=== PATIENT | female | born 1970 | race Caucasian/White ===

== ENCOUNTER 2023-01-21 08:52 | Day surgery (SDC) | payer MEDICARE, MEDICAID ==
[2023-01-20 12:49] LABS: BASOPHILS % (AUTO) 0.4 % (0-1); EOSINOPHILS # (AUTO) 0.2 X10'3 (0-0.9); EOSINOPHILS % (AUTO) 2.2 % (0-6); HEMATOCRIT 39.7 % (35.0-45.0); HEMOGLOBIN 12.7 g/dl (12.0-16.0); LYMPHOCYTES # (AUTO) 2.6 X10'3 (1.1-4.8); LYMPHOCYTES % (AUTO) 31.3 % (21-51); MEAN CORPUSCULAR VOLUME 87.5 FL (78-98); MEAN PLATELET VOLUME 7.2 FL (7.4-10.4); MONOCYTES # (AUTO) 0.5 X10'3 (0-0.9); NEUTROPHILS # (AUTO) 4.9 X10'3 (1.8-7.7); NEUTROPHILS % (AUTO) 60.1 % (42-75); PLATELET COUNT 386 X10'3 (140-440); RED BLOOD COUNT 4.54 X10'6 (4.20-5.60); RED CELL DISTRIBUTION WIDTH 15.9 % (11.5-14.5); WHITE BLOOD COUNT 8.2 X10'3 (4.5-11.0)
[2023-01-20 12:56] LABS: ALBUMIN 3.5 G/DL (3.4-5.0); ANION GAP 10 (8-16); BLOOD UREA NITROGEN 20 MG/DL (7-18); CALCIUM 9.5 MG/DL (8.5-10.1); CHLORIDE 99 MMOL/L (99-107); GLUCOSE 129 MG/DL (70-104); POTASSIUM 4.1 MMOL/L (3.5-5.1); SODIUM 137 MMOL/L (135-145); TOTAL CARBON DIOXIDE 28.2 MMOL/L (24-32); eGFR 75 ML/MIN
[2023-01-20 12:58] LABS: APTT 33 SECONDS (22-32); PROTHROMBIN TIME 10.4 SECONDS (9.0-12.0)
[2023-01-21] VITALS (10 sets, daily range): BP systolic 100–130; BP diastolic 57–72; PULSE 64–80; RESP 14–17; TEMP 98.1; O2SAT 95–100
[~2023-01-21] VITALS: Ht 167.6 cm; Wt 127.6 kg
[2023-01-21] MEDS ORDERED: LISI5TAB22 PO (09:19)
[2023-01-21] MEDS ORDERED: IXEK80AU2 SUBCUT (09:19)
[2023-01-21] MEDS ORDERED: LAMO200T10 PO (09:19)
[2023-01-21] MEDS ORDERED: EMPA10TA PO (09:19)
[2023-01-21] MEDS ORDERED: MONT-40 PO (09:19)
[2023-01-21] MEDS ORDERED: INSU100I71 SUBCUT (09:19)
[2023-01-21] MEDS ORDERED: SIMV-42 PO (09:19)
[2023-01-21] MEDS ORDERED: DULA1.5P SQ (09:19)
[2023-01-21] MEDS ORDERED: BUSP5TAB3 PO (09:19)
[2023-01-21] MEDS ORDERED: CITA40TA30 PO (09:21)
[2023-01-21] MEDS ORDERED: METF-438 PO (09:21)
[2023-01-21] MEDS ORDERED: ASPI-611 PO (09:21)
[2023-01-21] MEDS ORDERED: CHOL500050 PO (09:21)
[2023-01-21] MEDS ORDERED: normal saline 1,000 ML IV SCH (09:35)
[2023-01-21] MEDS ORDERED: diphenhydrAMINE 25mg capsule PO PRN (09:35)
[2023-01-21] MEDS ORDERED: LORazepam 0.5 MG tablet PO PRN (09:35)
[2023-01-21] MEDS ORDERED: LIDOcaine 1% (10mg/ml) 2ml vial ONE (09:45)
[2023-01-21] MEDS ORDERED: nitroGLYCERIN-Tridil 50MG/D5W 250 ML IV ONE (09:45)
[2023-01-21] MEDS ORDERED: verapamil 2.5 mg/ml inj IV ONE (09:45)
[2023-01-21] MEDS ORDERED: midazolam 1 mg/ML 2ml injection ONE (09:45)
[2023-01-21] MEDS ORDERED: iohexol 350MG/ML 100ml bottle IV ONE (09:46)
[2023-01-21] MEDS ORDERED: heparin 1,000unit/ml 10ml vial 10 ML ONE (09:46)
[2023-01-21] MEDS ORDERED: fentaNYL/PF 50MCG/1 ML 2ML syringe ONE (09:46)
[2023-01-21] MEDS ORDERED: iohexol 350 MG/ML 50ML vial IV ONE (10:16)
[2023-01-21] MEDS ORDERED: LIDOcaine 1% 30ml preserv. free vial ONE (10:30)
[2023-01-21 11:10] LABS: ISTAT HGB MIX 11.9 g/dl (12.0-16.0); ISTAT HGB MIX 12.2 g/dl (12.0-16.0); ISTAT Hct MIX 35 %PCV (35-45); ISTAT Hct MIX 36 %PCV (35-45); ISTAT O2 SATURATION MIX VENOUS 66 % (60-80); ISTAT O2 SATURATION MIX VENOUS 93 % (60-80); ISTAT SOURCE BLNK
[2023-01-21] MEDS ORDERED: sodium bicarbonate 1meq/ml syr 150 ML in dextrose 5%-water 1,000 ML IV SCH (11:40)
== END 2023-01-21 15:00 | disposition home or self-care (01) ==
LOC: SSTAY O 08:52
PROVIDERS: ATTEND Internal Medicine Cardiovascular Disease
DX: R94.39 Abnormal result of other cardiovascular function study (principal); I25.10 Atherosclerotic heart disease of native coronary artery without angina pectoris; E11.9 Type 2 diabetes mellitus without complications; I10 Essential (primary) hypertension; E78.5 Hyperlipidemia, unspecified; E66.9 Obesity, unspecified; Z68.41 Body mass index [BMI] 40.0-44.9, adult; G47.30 Sleep apnea, unspecified; F43.10 Post-traumatic stress disorder, unspecified; Z79.82 Long term (current) use of aspirin; Z79.899 Other long term (current) drug therapy; Z79.01 Long term (current) use of anticoagulants; Z79.4 Long term (current) use of insulin; Z98.890 Other specified postprocedural states; Z90.49 Acquired absence of other specified parts of digestive tract; Z90.710 Acquired absence of both cervix and uterus; Z87.891 Personal history of nicotine dependence; Z82.49 Family history of ischemic heart disease and other diseases of the circulatory system; Z83.3 Family history of diabetes mellitus
CPT/HCPCS: 36415; 76937; 80048; 82803; 82948; 85014; 85025; 85610; 85730; 93005; 93460; 99152; 99153; J1644; J2250; J3010; J3490; J7030; Q0163; Q9967; A6258; A6449; C1725; C1751; C1769; C1894

== ENCOUNTER 2023-01-28 02:25 | Emergency (ER) | payer MEDICARE, MEDICAID ==
[~2023-01-28] VITALS: Ht 167.6 cm; Wt 122.8 kg
[~2023-01-28 02:25] MED LIST: ASPI-611 PO; BUSP5TAB3 PO; CHOL500050 PO; CITA40TA30 PO; DULA1.5P SQ; EMPA10TA PO; INSU100I71 SUBCUT; IXEK80AU2 SUBCUT; LAMO200T10 PO; LISI5TAB22 PO; METF-438 PO; MONT-40 PO; SIMV-42 PO
[2023-01-28 02:28] VITALS: BP 148/67; PULSE 85; RESP 16; TEMP 98.1; O2SAT 97
[2023-01-28 05:09] LABS: BASOPHILS # (AUTO) 0.1 X10'3 (0-0.2); BASOPHILS % (AUTO) 0.9 % (0-1); EOSINOPHILS # (AUTO) 0.3 X10'3 (0-0.9); EOSINOPHILS % (AUTO) 2.9 % (0-6); HEMATOCRIT 36.2 % (35.0-45.0); HEMOGLOBIN 11.8 g/dl (12.0-16.0); LYMPHOCYTES # (AUTO) 3.5 X10'3 (1.1-4.8); LYMPHOCYTES % (AUTO) 39.3 % (21-51); MEAN CORPUSCULAR HEMOGLOBIN 28.4 PG (27.0-31.0); MEAN CORPUSCULAR HGB CONC 32.7 g/dL (33.0-36.5); MEAN CORPUSCULAR VOLUME 86.9 FL (78-98); MEAN PLATELET VOLUME 6.8 FL (7.4-10.4); MONOCYTES # (AUTO) 0.6 X10'3 (0-0.9); MONOCYTES % (AUTO) 6.3 % (2-12); NEUTROPHILS # (AUTO) 4.5 X10'3 (1.8-7.7); NEUTROPHILS % (AUTO) 50.6 % (42-75); PLATELET COUNT 401 X10'3 (140-440); RED BLOOD COUNT 4.16 X10'6 (4.20-5.60); RED CELL DISTRIBUTION WIDTH 15.7 % (11.5-14.5)
[2023-01-28 05:22] LABS: APTT 29 SECONDS (22-32); PROTHROMBIN TIME 10.3 SECONDS (9.0-12.0)
[2023-01-28 05:23] LABS: ALANINE AMINOTRANSFERASE 11 U/L (12-78); ALBUMIN 3.4 G/DL (3.4-5.0); ALBUMIN/GLOBULIN RATIO 0.7 (1.1-1.5); ALKALINE PHOSPHATASE 103 IU/L (46-116); ANION GAP 7 (8-16); ASPARTATE AMINO TRANSFERASE 11 U/L (10-37); BILIRUBIN,TOTAL 0.3 MG/DL (0.1-1.0); BLOOD UREA NITROGEN 21 MG/DL (7-18); BUN/CREATININE RATIO 25.9 (10.0-20.0); CALCIUM 9.4 MG/DL (8.5-10.1); CHLORIDE 99 MMOL/L (99-107); CREATININE 0.81 MG/DL (0.40-0.90); GLUCOSE 135 MG/DL (70-104); POTASSIUM 3.9 MMOL/L (3.5-5.1); SODIUM 136 MMOL/L (135-145); TOTAL PROTEIN 8.2 G/DL (6.4-8.2); eCRCL 75 ML/MIN; eGFR 74 ML/MIN
[2023-01-28] MEDS ORDERED: DOCU-171 PO (05:33)
[2023-01-28] MEDS ORDERED: bisacodyl 5mg tablet.DR PO ONE (05:35)
== END 2023-01-28 05:57 | disposition home or self-care (01) ==
LOC: ER 02:25
DX: K62.5 Hemorrhage of anus and rectum (principal); E78.00 Pure hypercholesterolemia, unspecified; E11.9 Type 2 diabetes mellitus without complications; Z98.890 Other specified postprocedural states; Z79.899 Other long term (current) drug therapy; Z79.1 Long term (current) use of non-steroidal anti-inflammatories (NSAID)
CPT/HCPCS: 36415; 80053; 85025; 85610; 85730; 86885; 86900; 86901; 99283

== ENCOUNTER 2024-01-05 21:52 | Emergency (ER) | payer MEDICARE, MEDICAID ==
[~2024-01-05] VITALS: Ht 167.6 cm; Wt 128.2 kg
[~2024-01-05 21:52] MED LIST changes: +DOCU-171 PO; -INSU100I71 SUBCUT; +INSU100I98 SUBCUT
[2024-01-05 22:07] VITALS: BP 127/79; PULSE 80; RESP 16; TEMP 97.8; O2SAT 98
[2024-01-05] MEDS ORDERED: NYST30CR34 TOP (22:21)
[2024-01-05] MEDS ORDERED: NYSPWD TP (22:21)
== END 2024-01-05 22:44 | disposition home or self-care (01) ==
LOC: ER 21:53
DX: B37.2 Candidiasis of skin and nail (principal); E78.00 Pure hypercholesterolemia, unspecified; E11.9 Type 2 diabetes mellitus without complications; Z79.82 Long term (current) use of aspirin; Z79.899 Other long term (current) drug therapy; Z79.4 Long term (current) use of insulin; Z79.84 Long term (current) use of oral hypoglycemic drugs; Z90.49 Acquired absence of other specified parts of digestive tract; Z98.890 Other specified postprocedural states; Z90.710 Acquired absence of both cervix and uterus
CPT/HCPCS: 99283

== ENCOUNTER 2024-03-23 17:50 | Emergency (ER) | payer MEDICARE, MEDICAID ==
[~2024-03-23] VITALS: Ht 167.6 cm; Wt 127.6 kg
[~2024-03-23 17:50] MED LIST changes: +NYSPWD TP; +NYST30CR34 TOP
[2024-03-23 18:04] VITALS: BP 183/77; PULSE 99; RESP 18; O2SAT 97
[2024-03-23] MEDS ORDERED: SULF1TAB49 PO (19:34)
[2024-03-23 20:00] VITALS: TEMP 97.9
[2024-03-23] MEDS: LIDOcaine 1% W/epiNEPHrine 1:100,000 20ml vial SQ ONE (20:06)
== END 2024-03-23 20:00 | disposition home or self-care (01) ==
LOC: ER 17:51
DX: L02.31 Cutaneous abscess of buttock (principal); E78.00 Pure hypercholesterolemia, unspecified; E11.9 Type 2 diabetes mellitus without complications; Z79.899 Other long term (current) drug therapy; Z79.82 Long term (current) use of aspirin; Z90.49 Acquired absence of other specified parts of digestive tract; Z90.710 Acquired absence of both cervix and uterus
CPT/HCPCS: 10060; 99283; A6213; A6258; A6407; Z7610

== ENCOUNTER 2024-05-16 08:04 | Emergency (ER) | payer MEDICARE, MEDICAID ==
[~2024-05-16] VITALS: Ht 167.6 cm; Wt 127.6 kg
[2024-05-16] MEDS ORDERED: POLOS RIGHTEYE (10:32)
[2024-05-16] MEDS ORDERED: CEPH-585 PO (10:32)
[2024-05-16 10:42] VITALS: BP 120/70; PULSE 80; RESP 16; TEMP 98.5; O2SAT 97
== END 2024-05-16 10:54 | disposition home or self-care (01) ==
LOC: ER 08:05
DX: H10.89 Other conjunctivitis (principal); E78.00 Pure hypercholesterolemia, unspecified; E11.9 Type 2 diabetes mellitus without complications; Z90.49 Acquired absence of other specified parts of digestive tract; Z90.710 Acquired absence of both cervix and uterus; Z98.890 Other specified postprocedural states; Z88.6 Allergy status to analgesic agent; Z79.4 Long term (current) use of insulin; Z79.82 Long term (current) use of aspirin
CPT/HCPCS: 99283

== ENCOUNTER 2024-11-11 02:29 | Emergency (ER) | payer MEDICARE, MEDICAID ==
[~2024-11-11] VITALS: Ht 167.6 cm; Wt 127.3 kg
[~2024-11-11 02:29] MED LIST changes: +NYST30CR28 TOP; -NYST30CR34 TOP
[2024-11-11 02:31] VITALS: BP 149/72; PULSE 83; RESP 18; O2SAT 98
[2024-11-11] MEDS: LIDOcaine 1% W/epiNEPHrine 1:100,000 20ml vial SQ ONE (03:09)
--- NOTE | 2024-11-11 03:35 | Physician Documentation ---
History of Present Illness ~ Chief Complaint: Abscess Stated Complaint: ABSCESS Time Seen by MD: 03:34 Primary Medical Doctor: none- pt is in between doctors HPI Patient presents to the emergency room with one-week history of abscess formation to her left buttock. She states it is now red swollen warm and painful. She denies purulent discharge from the area as of yet. She denies fevers or chills. She has had these in the past which required incision and drainage. Tetanus Within 5 Years: Yes Medication Reconciliation Allergies: Coded Allergies: No Known Allergies (Unverified , 11/11/24) Scheduled Aspirin (Aspir 81), 1 TAB PO DAILY, (Reported) Buspirone Hcl* (Buspar*), 1 TAB PO BID, (Reported) Cholecalciferol (Vitamin D3) (Vitamin D3), 1 CAP PO DAILY, (Reported) Citalopram Hydrobromide (Citalopram HBr), 1 TAB PO DAILY, (Reported) Docusate Sodium (Dulcolax Stool Softener), 1 CAP PO Q12H Dulaglutide (Trulicity), 1 EA SQ Q7D, (Reported) Empagliflozin (Jardiance), 1 TAB PO DAILY, (Reported) Insulin Glargine-Yfgn (Semglee (Yfgn) Pen), 40 UNITS SUBCUT DAILY, (Reported) Ixekizumab (Taltz Autoinjector), 1 EA SUBCUT Q28D, (Reported) Lamotrigine (Lamotrigine), 2 TAB PO DAILY, (Reported) Lisinopril (Lisinopril), 1 TAB PO DAILY, (Reported) Metformin HCl (Metformin HCl), 1 TAB PO BID, (Reported) Montelukast Sodium (Montelukast Sodium), 1 TAB PO DAILY, (Reported) Nystatin (Nystatin), 1 APPLIC TOP Q12H Nystatin (NYSTOP powder), 1 APPLIC TP BID Simvastatin* (Zocor*), 1 TAB PO HS, (Reported) Sulfamethoxazole/Trimethoprim (Bactrim Ds Tablet), 1 TAB PO Q12H Past Medical History Past Medical History: High Cholesterol, Hemorrhoids, Diabetes Past Surgical History: appendectomy, cholecystectomy, , hysterectomy, orthopedic surgeries Alcohol Use: None Drug Use: none Lives with: Mother Lives In: Home Occupation: other Review of Systems ROS All review of systems negative except as per HPI Physical Exam Vital Signs: Temperature: 98.1, Source: Oral, Heart Rate: 83, Respiratory Rate: 18, BP: 149/72, Pulse Oximetry: 98, Weight: 127.270 Physical Exam General: Patient is awake, alert, oriented x4 in no acute distress and well appearing.~ Head: Normocephalic and atraumatic. Eyes: Conjunctival normal. EOMI. PERRL. ENT: Mucous membranes moist. Neck: Supple, trachea is midline. Chest: Clear to auscultation bilaterally without rales, rhonchi, or wheezes. There is no accessory muscle use or retractions. Cardiac: RRR without murmurs, gallops, or rubs. : Patient has a abscess measuring 2 cm x 2 cm to her left lateral buttock with no associated cellulitis. Procedures Procedures Incision and drainage: Status post informed verbal consent patient was sterilely cleaned and draped using Betadine. She was anesthetized with 5 cc of lidocaine with epinephrine. 11. Blade utilized to perform star-shaped incision and drainage. De loculation did take place with sterile probe. A proximally 10 cc of purulent discharge expressed. Wound packed. Bandage placed. Patient tolerated procedure well without complication total time of procedure 10 minutes. Progress Results/Orders Results/Orders Completed Orders - DAGO LOUIE MD Lidocaine 1% W/Epi 1:100,000 (Xylocaine (11/11/24 02:50) Vital Signs 11/11/24 02:31 Temp 98.1 Pulse 83 Resp 18 B/P (MAP) 149/72 Pulse Ox 98 Medical Decision Making Findings Patient presents to the emergency room for evaluation of buttock abscess as per HPI. Differentials include but are not limited to abscess, epidermal inclusion cyst, cellulitis, foreign body. Given history I do not feel emergent labs are necessary. Patient's vital signs are stable. Patient is status post incision and drainage as per procedure note. We will begin patient on antibiotics given area of abscess. ER precautions discussed. Departure Disposition: HOME / SELF CARE / HOMELESS Impression: Primary Impression: Abscess Condition: Stable Discharge Instructions: Abscess, Care After Additional Instructions: Have packing removed in 2-3 days. Finish all antibiotics. Return for symptoms of infection. Keep covered with antibiotic ointment. Referrals: NO PRIMARY CARE PROVIDER (PCP) Prescriptions Sulfamethoxazole/Trimethoprim (Bactrim Ds Tablet) 800 Mg-160 Mg Tablet 1 TAB PO Q12H for 10 Days, #20 TAB Prov: DAGO LOUIE MD 11/11/24 Education Educated: Patient Educated regarding: diagnosis, treatment, need for follow up Signature Scribe Signature: No scribe Attestation: The note accurately reflects work and decisions made by me.Dago Louie MD 11/11/24 03:51 DAGO LOUIE MD Nov 11, 2024 03:35
[2024-11-11] MEDS ORDERED: SULF1TAB49 PO (03:50)
[2024-11-11] MEDS ORDERED: bacitracin 15gm ointment TP ONE (04:15)
[2024-11-11 04:25] VITALS: TEMP 98.1
== END 2024-11-11 04:26 | disposition home or self-care (01) ==
LOC: ER 02:30
DX: L02.31 Cutaneous abscess of buttock (principal); E78.00 Pure hypercholesterolemia, unspecified; E11.9 Type 2 diabetes mellitus without complications; Z90.49 Acquired absence of other specified parts of digestive tract; Z90.710 Acquired absence of both cervix and uterus; Z79.82 Long term (current) use of aspirin
CPT/HCPCS: 10060; 99283; A6402; A6407; Z7610; A6449

== ENCOUNTER 2024-11-27 22:29 | Emergency (ER) | payer MEDICARE, MEDICAID ==
[~2024-11-27] VITALS: Ht 167.6 cm; Wt 109.9 kg
--- NOTE | 2024-11-27 22:39 | Physician Documentation ---
History of Present Illness ~ Chief Complaint: Abscess Stated Complaint: MULTIPLE MEDICAL ISSUES Time Seen by MD: 02:03 Primary Medical Doctor: none- pt is in between doctors HPI 54 Year old female returns to the ED after being seen 2-3 days ago for an a bscess on her buttocks. She has currently taken antibiotics states that she has had increased pain and swelling in her armpit as well now requesting further evaluation History as above. I did see patient a few weeks ago for an incision and drainage. A new abscess has formed lateral to her previous abscess. She is also having abscess in her right axilla. No fevers. Day of Onset: Nov 27, 2024 Tetanus Within 5 Years: Yes Medication Reconciliation Allergies: Coded Allergies: No Known Allergies (Unverified , 11/27/24) Scheduled Aspirin (Aspir 81), 1 TAB PO DAILY, (Reported) Buspirone Hcl* (Buspar*), 1 TAB PO BID, (Reported) Cholecalciferol (Vitamin D3) (Vitamin D3), 1 CAP PO DAILY, (Reported) Citalopram Hydrobromide (Citalopram HBr), 1 TAB PO DAILY, (Reported) Docusate Sodium (Dulcolax Stool Softener), 1 CAP PO Q12H Dulaglutide (Trulicity), 1 EA SQ Q7D, (Reported) Empagliflozin (Jardiance), 1 TAB PO DAILY, (Reported) Insulin Glargine-Yfgn (Semglee (Yfgn) Pen), 40 UNITS SUBCUT DAILY, (Reported) Ixekizumab (Taltz Autoinjector), 1 EA SUBCUT Q28D, (Reported) Lamotrigine (Lamotrigine), 2 TAB PO DAILY, (Reported) Lisinopril (Lisinopril), 1 TAB PO DAILY, (Reported) Metformin HCl (Metformin HCl), 1 TAB PO BID, (Reported) Montelukast Sodium (Montelukast Sodium), 1 TAB PO DAILY, (Reported) Nystatin (Nystatin), 1 APPLIC TOP Q12H Nystatin (NYSTOP powder), 1 APPLIC TP BID Simvastatin* (Zocor*), 1 TAB PO HS, (Reported) Discontinued Medications Sulfamethoxazole/Trimethoprim (Bactrim Ds Tablet), 1 TAB PO Q12H Discontinued Reason: Auto Discontinued Past Medical History Past Medical History: High Cholesterol, Hemorrhoids, Diabetes Past Surgical History: appendectomy, cholecystectomy, , hysterectomy, orthopedic surgeries Alcohol Use: None Drug Use: none Lives with: Mother Lives In: Home Occupation: other Review of Systems ROS All review of systems negative except as per HPI Physical Exam Vital Signs: Temperature: 96.8, Source: Temporal, Heart Rate: 88, Respiratory Rate: 15, BP: 156/98, Pulse Oximetry: 99, Weight: 109.900 Physical Exam General: Patient is awake, alert, oriented x4 in no acute distress and well appearing.~ Head: Normocephalic and atraumatic. Eyes: Conjunctival normal. EOMI. PERRL. ENT: Mucous membranes moist. Neck: Supple, trachea is midline. Chest: Clear to auscultation bilaterally without rales, rhonchi, or wheezes. There is no accessory muscle use or retractions. Cardiac: RRR without murmurs, gallops, or rubs. Abd: Soft, nondistended, nontender, with normoactive bowel sounds. No guarding, rebound, or rigidity. : Noted abscess to patient's left buttock measuring 4 cm x 4 cm with positive fluctuance Skin: Draining abscess noted to patient's right armpit with no cellulitis. Procedures Procedures Incision and drainage #1: Status post informed verbal consent patient was cleaned but he has been Betadine and an incision and drainage was performed on her left buttock. Proximally 10 cc of purulent discharge was expressed. Abscess was de loculated. Packing placed. Was anesthetized with 7 cc of lidocaine with epinephrine total time of procedure 10 minutes Incision and drainage #2: Status post informed verbal consent patient was cleaned with Betadine and anesthetized with 3 cc of lidocaine with epinephrine. Incision and drainage performed and patient's right axilla to abscess with 3 cc of purulent discharge expressed. Packing placed in abscess was de loculated. Patient tolerated procedure well without complication. Total time of procedure 5 minutes Progress Results/Orders Results/Orders Orders - DAGO LOUIE MD Dressing Orders (11/28/24 02:19) Culture Body Fluid Order (11/28/24 02:23) Cult (Aer) Routine C&S+Gram St (11/28/24 03:10) Completed Orders - DAGO LOUIE MD Cephalexin Capsule (Keflex Capsule) (11/28/24 02:25) Lidocaine 1% W/Epi 1:100,000 (Xylocaine (11/28/24 02:30) Medications Received in ER Medications (Trade) Dose Ordered Sig/Zita Route PRN Reason Start Time Stop Time Status Last Admin Dose Admin (Xylocaine 1%-EPI 1:100,000) 30 ml ONCE ONCE IJ 11/28/24 02:30 11/28/24 02:31 DC 11/28/24 02:29 30 ML (Keflex capsule) 500 mg ONCE ONCE PO 11/28/24 02:25 11/28/24 02:26 DC 11/28/24 02:28 500 MG Vital Signs 11/27/24 22:31 Temp 96.8 Pulse 88 Resp 15 B/P (MAP) 156/98 Pulse Ox 99 Medical Decision Making Findings Patient presented to the emergency room with abscesses as per HPI. Patient is status post incision and drainage of both abscesses. Packing placed and she has been instructed remove packing in two three days to return if symptoms worsen or fevers. Differential Dx:Considerations: Include: Abscess, Bacteremia, Cellulitis, Erysipelas, Felon Departure Disposition: HOME / SELF CARE / HOMELESS Impression: Primary Impression: Abscess Condition: Stable Discharge Instructions: Abscess, Care After Additional Instructions: Have packing removed in 2-3 days. Finish all antibiotics Referrals: NO PRIMARY CARE PROVIDER (PCP) Prescriptions Hydrocodone Bit/Acetaminophen 5/325 MG (Hemet 5/325 MG) 5 Mg/325 Mg Tablet 1 TAB PO Q4-6 hours PRN for pain, #12 TAB Prov: DAGO LOUIE MD 11/28/24 Cephalexin*Monohydrate* (Keflex*) 500 Mg Capsule 1 CAP PO Q12H for 10 Days, #20 CAP Prov: DAGO LOUIE MD 11/28/24 Education Educated: Patient Educated regarding: diagnosis, treatment, need for follow up Signature Scribe Signature: No scribe Attestation: The note accurately reflects work and decisions made by me.Dago Louie MD 11/28/24 03:42 FELICE DUMAS NP Nov 27, 2024 22:39 DAGO LOUIE MD Nov 28, 2024 02:23
[2024-11-28] MEDS: cephalexin 250mg capsule PO ONE (02:28)
[2024-11-28] MEDS: LIDOcaine 1% W/epiNEPHrine 1:100,000 20ml vial IJ ONE (02:29)
[2024-11-28] MEDS ORDERED: CEPH-585 PO (03:42)
[2024-11-28] MEDS ORDERED: HYDR-3965 PO (03:42)
[2024-11-28] MEDS: HYDROcodone/acetaminophen 5mg/325mg tablet PO ONE (03:43)
[2024-11-28] MEDS: ondansetron 4mg rapidly disintigrating tab PO ONE (03:43)
[2024-11-28 03:50] VITALS: BP 152/92; PULSE 86; RESP 18; TEMP 98.6; O2SAT 99
== END 2024-11-28 03:51 | disposition home or self-care (01) ==
LOC: ER 22:30
DX: L02.31 Cutaneous abscess of buttock (principal); L02.411 Cutaneous abscess of right axilla; E11.9 Type 2 diabetes mellitus without complications; E78.00 Pure hypercholesterolemia, unspecified; Z90.49 Acquired absence of other specified parts of digestive tract; Z90.710 Acquired absence of both cervix and uterus; Z79.82 Long term (current) use of aspirin
CPT/HCPCS: 10061; 87070; 99284; A6402; J3490; Z7610; 87077; 87186; A6449